=== PATIENT | female | born 1955 | race Caucasian/White ===

== ENCOUNTER 2021-03-11 06:38 | Emergency (ER) | payer MEDICAID ==
[~2021-03-11] VITALS: Ht 152.4 cm; Wt 93.2 kg
[2021-03-11 08:03] LABS: GRAN # 2.8 (1.4-6.5); GRAN % 75.7 % (42.2-75.2); HEMATOCRIT 40.1 % (37.0-47.0); HEMOGLOBIN 13.5 g/dl (12.5-16.0); LYMPH # 0.6 (1.2-3.4); LYMPH % 16.8 % (20.0-51.0); MEAN CELL VOLUME 92 fl (80.0-100.0); MEAN CORPUSCULAR HEMOGLOBIN 31 pg (27.0-31.0); MEAN CORPUSCULAR HGB CONC 34 g/dl (33.0-37.0); MEAN PLATELET VOLUME 12.4 fl (7.4-10.4); MONO # 0.3 (0.1-0.6); PLATELET COUNT 105 K/mm3 (130-400); RED BLOOD COUNT 4.37 M/mm3 (4.10-5.30); REDCELL DISTRIBUTION WIDTH-CV 14.2 % (11.5-14.5)
[2021-03-11 08:13] LABS: ALANINE AMINOTRANSFERASE 22 U/L (4-34); ALBUMIN 3.7 gm/dL (3.5-5.0); ALKALINE PHOSPHATASE 69 U/L (50-136); ANION GAP 10 mmol/L (7-16); AST,SGOT 34 U/L (15-37); BILIRUBIN,TOTAL 0.4 mg/dL (0.0-1.0); BLOOD UREA NITROGEN 12 mg/dL (7-17); CALCIUM 8.1 mg/dL (8.4-10.2); CARBON DIOXIDE 24 mmol/L (22-30); CHLORIDE 100 mmol/L (98-107); CREATININE, serum 0.88 (0.52-1.25); GLUCOSE 138 mg/dL (74-106); POTASSIUM 3.8 mmol/L (3.4-5.0); SODIUM 134 mmol/L (137-145); TOTAL PROTEIN 6.8 gm/dL (6.4-8.2)
[2021-03-11 08:34] LABS: TROPONIN-I < 0.012 ng/mL (0.000-0.035)
[2021-03-11 08:50] VITALS: BP 104/61; PULSE 83; TEMP 99.6
== END 2021-03-11 08:58 | disposition home or self-care (01) ==
LOC: COL.ER 06:38
PROVIDERS: Emergency Medicine
DX: U07.1 COVID-19 (principal)
CPT/HCPCS: Q0244

== ENCOUNTER 2023-07-17 18:36 | Emergency (ER) | payer MEDICAID ==
[~2023-07-17] VITALS: Ht 149.9 cm; Wt 88.2 kg
[2023-07-17 18:45] VITALS: TEMP 97.6
[2023-07-17 19:23] LABS: HEMATOCRIT 38.3 % (37.0-47.0); HEMOGLOBIN 12.7 g/dl (12.5-16.0); MEAN CELL VOLUME 95 fl (80.0-100.0); MEAN CORPUSCULAR HEMOGLOBIN 31 pg (27-31); MEAN CORPUSCULAR HGB CONC 33 g/dl (33.0-37.0); PLATELET COUNT 127 K/mm3 (130-400); RED BLOOD COUNT 4.05 M/mm3 (4.10-5.30); REDCELL DISTRIBUTION WIDTH-CV 13.7 % (11.5-14.5)
[2023-07-17 19:42] LABS: ALBUMIN 3.6 gm/dL (3.4-4.8); BILIRUBIN,TOTAL 0.6 mg/dL (0.2-1.2); C-REACTIVE PROTEIN 0.34 mg/dL (0.00-0.50); CALCIUM 9.3 mg/dL (8.4-10.2); CREATININE, serum 0.8 mg/dL (0.57-1.11); POTASSIUM 3.7 mmol/L (3.5-4.5); TOTAL PROTEIN 6.7 gm/dL (6.2-8.1)
[2023-07-17 19:43] LABS: COLLECTION METHOD CLEAN CATCH
[2023-07-17 20:00] LABS: URINE APPEARANCE Hazy (CLEAR/HAZY); URINE COLOR Yellow (YELLOW); URINE GLUCOSE Negative (NEGATIVE); URINE KETONE Negative (NEGATIVE); URINE PROTEIN(semi-quant) Negative (NEGATIVE)
[2023-07-17 20:01] LABS: URINE BACTERIA Occasional /hpf (NONE SEEN); URINE BLOOD Negative (NEGATIVE); URINE NITRATE Negative (NEGATIVE); URINE RBC 0-2 /hpf (0-2)
[2023-07-17 20:25] LABS: BAND 7 % (0-10); EOSINOPHIL 6 % (0-4); LYMPHOCYTE 13 % (20.0-51.0); NEUTROPHILS 72 % (42.0-75.2)
[2023-07-17 20:26] LABS: PLATELET ESTIMATE NORMAL (NORMAL)
[2023-07-17 21:08] VITALS: BP 176/96; PULSE 92
== END 2023-07-17 21:08 | disposition home or self-care (01) ==
LOC: COL.ER 18:36
PROVIDERS: Nurse Practitioner
DX: R10.13 Epigastric pain (principal)